=== PATIENT | female | born 1970 | race Caucasian/White ===

== ENCOUNTER → 2023-08-09 09:12 | Outpatient (REF) | payer OTHER, SELFPAY | LOC: RAD 09:12 | PROVIDERS: ATTENDING PHYSICIAN Surgery; FAMILY PHYSICIAN Nurse Practitioner Family | DX: Z87.442 Personal history of urinary calculi (principal); M79.645 Pain in left finger(s) | CPT/HCPCS: 73140; 74018 ==

== ENCOUNTER → 2024-05-22 07:37 | Outpatient (REF) | payer OTHER, SELFPAY | LOC: WDC 07:37 | PROVIDERS: ATTENDING PHYSICIAN Nurse Practitioner Family | DX: Z12.31 Encounter for screening mammogram for malignant neoplasm of breast (principal) | CPT/HCPCS: 77063; 77067 ==